=== PATIENT | male | born 1950 | race Caucasian/White ===

== ENCOUNTER 2023-11-10 08:41 | Outpatient (AMB) | payer BC, SELFPAY ==
--- NOTE | 2023-11-10 08:45 | A.OFFVIS_ITS ---
Intake Visit Reasons: Elevated PSA Intake Note: NEW Patient presents today to established treatment for Elevated PSA: Meds- Finasteride Allergies to Antibiotic- No Known Allergies Blood Thinner- None PVR, 21 mL Spectrographic Analyst Required: No Accompanied by: Self / Same As Patient Allergies tree and shrub pollen Allergy (Mild, Verified 11/10/23 08:51) Unknown HPI Comments Details: Jim is a 73-year-old male is here for evaluation due to elevated PSA. He states that he has seen Urology in the past. He was seen at [facility] urology and had a biopsy about 2-3 years ago that he states he is told prostate biopsy results were benign. He is transferred to [facility] Urology but was not satisfied with care as he has been referred by his primary to this office. He is also concerned about ED. He was prescribed Cialis in the past. He states that he was instructed to use the Cialis p.r.n.. He was brought in an MRI of the prostate performed 08/08/2021 results enlarged prostate 74 mL PI-RADS category 2-clinically significant cancer is unlikely to be present. Bladder scan PVR 21 mL PSA 03/27/2023- 5.2 Plan discussed finasteride 5 mg daily and Cialis 5 mg daily Review of Systems Const All systems reviewed & are unremarkable except as noted in HPI and below Reports no additional complaints Eyes Reports no additional complaints ENT Reports no additional complaints Card Reports no additional complaints Resp Reports no additional complaints GI Reports no additional complaints Reports as per HPI Musc Reports no additional complaints Skin/Breast Reports system reviewed and no additional complaints, except as documented Neuro Reports no additional complaints Psych Reports no additional complaints Endo Reports no additional complaints Howie/Lymph Reports no additional complaints Aller/Immun Reports no additional complaints Physical Exam Const General: healthy appearing, no acute distress and well developed Orientation/consciousness: patient oriented x3 HEENT Head: Yes normocephalic and Yes atraumatic Eyes Conjunctivae: conjunctivae normal Neck Neck: Yes normal visual inspection Chest Chest palpation & inspection: normal inspection of the chest Resp Effort & Inspection: normal respiratory effort Cardio Rate: regular rate GI Inspection: Yes normal to inspection Palpation (GI): Soft to palpation Skin General skin exam: no rashes or lesions noted Neuro General: patient oriented x3 Extrem General: No pedal edema Psych Appearance: grossly normal Affect: normal affect Office Procedures Post Void Residual Post Residual Void Post Void Residual (PVR): 21 08485-Asel Void Residual by ultrasound Results AMB Urinalysis, Automated UA Leukoctes 0 Joanna/uL Last Edit by BUFFY Ya on 11/10/23 09:02 UA Nitrite Negative Last Edit by BUFFY Ya on 11/10/23 09:02 UA Urobilinogen 0.2 mg/dL Last Edit by BUFFY Ya on 11/10/23 09:0 2 UA Protein 30 mg/dL Last Edit by BUFFY Ya on 11/10/23 09:02 1+ Joe Eevrett 11/10/23 09:02 UA pH 6.0 Last Edit by BUFFY Ya on 11/10/23 09:02 UA Blood 0 Shawn/uL Last Edit by BUFFY Ya on 11/10/23 09:02 UA Specific Louann 1.030 Last Edit by BUFFY Ya on 11/10/23 09: 02 UA Ketone Positive Last Edit by BUFFY Ya on 11/10/23 09:02 5 mg/dL Joe Everett 11/10/23 09:02 UA Bilirubin 0 mg/dL Last Edit by BUFFY Ya on 11/10/23 09:02 UA Glucose 0 mg/dL Last Edit by BUFFY Ya on 11/10/23 09:02 Quality Reporting (2019) Benign Prostatic Hyperplasia ([facility] 771) AUA symptom score: 14 Quality of life due to urinary symptoms: If you were to spend the rest of your life with your urinary condition the way it is now, how would you feel about that?: Mostly dissatisfied Results Reviewed Results Reviewed: Laboratory Last Values Urine pH (Auto) 6.0 04/22/24 08:52 Specific Louann (Auto) 1.030 11/10/23 08:52 Urine Protein (Auto) 30 mg/dL 11/10/23 08:52 Glucose (UA)(Auto) 0 mg/dL 11/10/23 08:52 Urine Ketones (Auto) Positive 11/10/23 08:52 Urine Blood (Auto) 0 Shawn/uL 11/10/23 08:52 Urine Nitrite (Auto) Negative 11/10/23 08:52 Urine Bilirubin (Auto) 0 mg/dL 11/10/23 08:52 Urine Urobilinogen (Auto) 0.2 mg/dL 11/10/23 08:52 Leukocyte Esterase (Auto) 0 Joanna/uL 11/10/23 08:52 Assessment & Plan Assessment & Plan (1) Elevated PSA: Code(s): R97.20 - Elevated prostate specific antigen [PSA] Category: Medical (2) BPH loc w urin obs/LUTS: Code(s): N40.1 - Benign prostatic hyperplasia with lower urinary tract symptoms Category: Medical Plan: Finasteride 5 mg daily. Will monitor PSA. Repeat in 4 months. Plan The patient had an opportunity to ask questions regarding treatment plan. The patient expressed understanding and agreement with the above treatment plan. The patient is aware they should contact our office by phone for worsening of their current condition or the appearance of new symptoms. Compliance is enco uraged with any medications and followup testing that is ordered. It is a privilege to be allowed the opportunity to participate in the urologic care of your patient. If you have any questions or concerns regarding treatment for the above conditions please do not hesitate to contact me. The office telephone contact is [phone]. This note is constructed in part using voice recognition software. While every effort has been made to ensure accuracy prototyper errors may have been included. Yours sincerely, Tyrel Price MD Orders: Orders AMB Post Void Residual by ultrasound 11/10/23 N39.8 - Other specified disorders of urinary system PSA,Total (Free>4and<10) 4 Months R97.20 - Elevated prostate specific antigen [PSA], N40.1 - Benign prostatic hyperplasia with lower urinary tract symptoms AMB Urinalysis Automated 11/10/23 Z13.9 - Encounter for screening, unspecified Medications: New finasteride (Proscar) 5 mg PO DAILY 90 tabs 3RF 90 days Coding Level of Care Code New Pt Level 3 (59489) Diagnoses Elevated PSA R97.20 BPH loc w urin obs/LUTS N40.1 CPT Codes Post Residual Void - PVR CPT Code: 44031-Rdtl Void Residual by ultrasound ([id number]) AUA Symptom Score AUA Incomplete emptying - It does not feel like I empty my bladder all the way.: 1 - Less than 1 time in 5 Frequency - I have to go again less than two hours after I finish urinating.: 5 - Almost always Intermittency - I stop and start again several times when I urinate.: 0 - Not at all Urgency - It is hard to wait when I have to urinate.: 5 - Almost always Weak stream - I have a weak urinary stream.: 1 - Less than 1 time in 5 Straining - I have to push or strain to begin urination.: 0 - Not at all Nocturia - I get up to urinate after I go to bed until the time I get up in the morning.: 2 times AUA Symptom Score: 14 Quality of life due to urinary symptoms: If you were to spend the rest of your life with your urinary condition the way it is now, how would you feel about that?: Mostly dissatisfied Source: Micah ECHAVARRIA, Junior RAMOS Jr, O'Sedalia MP, et al, and the Measurement Committee of the [employer]. The [employer] symptom index for benign prostatic hyperplasia. J Urol. 1992; 148: 1189-7840. Copyright 1992 [employer]
== END 2023-11-10 09:45 | disposition home or self-care (01) ==
PROVIDERS: PCP Internal Medicine; Visit Provider Urology
DX: R97.20 Elevated prostate specific antigen [PSA] (principal); N40.1 Benign prostatic hyperplasia with lower urinary tract symptoms
CPT/HCPCS: 99203

== ENCOUNTER → 2023-11-10 08:41 | Outpatient (BNVA) | payer BC, SELFPAY | PROVIDERS: PCP Internal Medicine; Visit Provider Urology | DX: R97.20 Elevated prostate specific antigen [PSA] (principal); N40.1 Benign prostatic hyperplasia with lower urinary tract symptoms; N13.8 Other obstructive and reflux uropathy | CPT/HCPCS: 51798; 81003 ==

== ENCOUNTER 2024-05-20 13:39 | Outpatient (AMB) | payer BC, SELFPAY ==
--- NOTE | 2024-05-20 12:52 | A.OFFVIS_ITS ---
Intake Visit Reasons: Follow up PSA(set) Intake Note: Patient is present for psa f/u Urology Medication:tadalafil,finasteride Antibiotic Allergy:none Blood Thinner:none Cushion Stuffer Required: No Allergies tree and shrub pollen Allergy (Mild, Verified 05/20/24 13:46) Unknown HPI Comments Details: 05/20/24--Jim is a 73-year-old male is here for FU due to elevated PSA. He was initially evaluated on 11/10/23 and started on proscar. I reviewed recent PSA. PSA-04/23/24--4.0 ng/mL. The patient was also prescribed Cialis for symptoms of ED. he states he has further concerns regarding his symptoms of ED. he has questions regarding alternative treatment options. I have reviewed the vacuum pump as well as discuss penile injection therapy. He is interested in further evaluation. He states that he has been trying to stay healthy, exercising. Discussed further evaluation can be done via penile Doppler testing. 30 minutes spent in review of records pertaining to this visit and including [id number] discussion with the patient and documentation of this visit. Review of chart: 11/10/23--Jim is a 73-year-old male is here for evaluation due to elevated PSA. He states that he has seen Urology in the past. He was seen at [facility] urology and had a biopsy about 2-3 years ago that he states he is told prostate biopsy results were benign. He is transferred to [facility] Urology but was not satisfied with care as he has been referred by his primary to this office. He is also concerned about ED. He was prescribed Cialis in the past. He states that he was instructed to use the Cialis p.r.n.. He was brought in an MRI of the prostate performed 08/08/2021 results enlarged prostate 74 mL PI-RADS category 2-clinically significant cancer is unlikely to be present. Bladder scan PVR 21 mL. PSA 03/27/2023- 5.2 Plan discussed finasteride 5 mg daily and Cialis 5 mg daily Review of Systems Const All systems reviewed & are unremarkable except as noted in HPI and below Reports no additional complaints Eyes Reports no additional complaints ENT Reports no additional complaints Card Reports no additional complaints Resp Reports no additional complaints GI Reports no additional complaints Reports as per HPI Musc Reports no additional complaints Skin/Breast Reports system reviewed and no additional complaints, except as documented Neuro Reports no additional complaints Psych Reports no additional complaints Endo Reports no additional complaints Howie/Lymph Reports no additional complaints Aller/Immun Reports no additional complaints Results AMB Urinalysis, Automated UA Leukoctes 70 Joanna/uL Last Edit by Arelis Ng [facility] on 05/20/24 13:58 UA Nitrite Negative Last Edit by Arelis Ng [facility] on 05/20/24 13:58 UA Urobilinogen 0.2 mg/dL Last Edit by Arelis Ng [facility] on 05/20/24 13:5 8 UA Protein 0 mg/dL Last Edit by Arelis Ng [facility] on 05/20/24 13:58 UA pH 6.0 Last Edit by Arelis Ng [facility] on 05/20/24 13:58 UA Blood 0 Shawn/uL Last Edit by Arelis Ng [facility] on 05/20/24 13:58 UA Specific Oriska 1.010 Last Edit by Arelis Ng [facility] on 05/20/24 13: 58 UA Ketone Negative Last Edit by Arelis Ng [facility] on 05/20/24 13:58 UA Bilirubin 0 mg/dL Last Edit by Arelis Ng [facility] on 05/20/24 13:58 UA Glucose 0 mg/dL Last Edit by Arelis Ng [facility] on 05/20/24 13:58 Results Reviewed Results Reviewed: Laboratory Last Values Urine pH (Auto) 6.0 05/20/24 13:57 Specific Oriska (Auto) 1.010 05/20/24 13:57 Urine Protein (Auto) 0 mg/dL 05/20/24 13:57 Glucose (UA)(Auto) 0 mg/dL 05/20/24 13:57 Urine Ketones (Auto) Negative 05/20/24 13:57 Urine Blood (Auto) 0 Shawn/uL 05/20/24 13:57 Urine Nitrite (Auto) Negative 05/20/24 13:57 Urine Bilirubin (Auto) 0 mg/dL 05/20/24 13:57 Urine Urobilinogen (Auto) 0.2 mg/dL 05/20/24 13:57 Leukocyte Esterase (Auto) 70 Joanna/uL 05/20/24 13:57 Assessment & Plan Assessment & Plan (1) Elevated PSA: Code(s): R97.20 - Elevated prostate specific antigen [PSA] Category: Medical (2) BPH loc w urin obs/LUTS: Code(s): N40.1 - Benign prostatic hyperplasia with lower urinary tract symptoms Category: Medical Plan: Finasteride 5 mg daily. Will monitor PSA. Repeat in 4 months. (3) Erectile dysfunction: Code(s): N52.9 - Male erectile dysfunction, unspecified Category: Medical Plan Continue Proscar. Continue to monitor PSA. Schedule penile Doppler with ultrasound and nurse practitioner. Orders: Orders AMB Urinalysis Automated 05/20/24 Z13.9 - Encounter for screening, unspecified PSA,Total (Free>4and<10) 6 Months R97.20 - Elevated prostate specific antigen [PSA] Medications: Refilled finasteride (Proscar) 5 mg PO DAILY 90 days 90 tabs 3RF Patient Instructions: The patient had an opportunity to ask questions regarding treatment plan. The patient expressed understanding and agreement with the above treatment plan. The patient is aware they should contact our office by phone for worsening of their current condition or the appearance of new symptoms. Compliance is encouraged with any medications and followup testing that is ordered. It is a privilege to be allowed the opportunity to participate in the urologic care of your patient. If you have any questions or concerns regarding treatment for the above conditions please do not hesitate to contact me. The office telephone contact is [phone]. This note is constructed in part using voice recognition software. While every effort has been made to ensure accuracy expert medical writer errors may have been included. Yours sincerely, Tyrel Price MD Coding Level of Care Code Est Pt Level 4 (98434) Diagnoses Elevated PSA R97.20 BPH loc w urin obs/LUTS N40.1 Erectile dysfunction N52.9
== END 2024-05-20 14:41 | disposition home or self-care (01) ==
LOC: HO.HUSH 13:39
PROVIDERS: PCP Internal Medicine; Visit Provider Urology
DX: R97.20 Elevated prostate specific antigen [PSA] (principal); N40.1 Benign prostatic hyperplasia with lower urinary tract symptoms; N52.9 Male erectile dysfunction, unspecified
CPT/HCPCS: 99214

== ENCOUNTER → 2024-05-20 13:39 | Outpatient (BNVA) | payer BC, SELFPAY | PROVIDERS: PCP Internal Medicine; Visit Provider Urology | DX: R97.20 Elevated prostate specific antigen [PSA] (principal); N40.1 Benign prostatic hyperplasia with lower urinary tract symptoms; N13.8 Other obstructive and reflux uropathy; N52.9 Male erectile dysfunction, unspecified; Z79.899 Other long term (current) drug therapy | CPT/HCPCS: 81003 ==

== ENCOUNTER 2024-10-05 09:44 | Outpatient (REF) | payer MEDICARE, BC, SELFPAY ==
--- NOTE | ~2024-10-05 | US_ITS ---
Examination: Penile ultrasound. CLINICAL INDICATION: Erectile dysfunction. TECHNIQUE: Generalized ultrasound imaging to the penile structure was performed. 2 mL of papaverine was injected on the right and left cavernosa and arterial velocities were obtained preinjection, and injection time and 5, 10, 15, 20 and 25 minute postinjection time. COMPARISON: None. On preliminary imaging of the penile structure that is slightly echogenic wall seen along evident nose artery. Postinjection values are as follows RIGHT CAVERNOSA: Preinjection: Peak systolic velocity 10.8. EDV 0. Injection time: Peak systolic velocity 19.8. EDV is 6.4 5 minutes: Peak systolic velocity 40.5. EDV 10.1 10 minutes: Peak systolic velocity 33.2. EDV 10.8 15 minutes: Peak systolic velocity 30.4. EDV 15.7 20 minutes: Peak systolic velocity 30.4. DAMARI 5.9. 25 minutes: Peak systolic velocity 19.5. EDV 4.0. Left cavernosa: Preinjection: Peak systolic velocity 9.0. EDV 0. Injection time: Peak systolic velocity 29.8. DAAMRI 8.9. 5 minutes: Peak systolic velocity 33.4. EDV 11.6. 10 minutes: Peak systolic velocity 14.9. EDV is 6.1 15 minutes: Peak systolic velocity 24.4. EDV 8.2. 20 minutes: Peak systolic velocity 16.5. EDV 5.4 25 minutes: Peak systolic velocity 25.7. EDV 5.2 US/US duplex AV flow penis comp IMPRESSION: There is normal peak systolic elevation in the right cavernosa with persistent elevation of and end diastolic velocity 5 minutes and 10 minutes post injection. 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 On the left there is normal peak systolic velocity at 5 minutes of 33.4 with decreased velocity. At 10 minutes there is slight decreased peak systolic velocity at 10 and 15 minutes, is variable. The end diastolic velocity is elevated at 5 minutes postinjection but below 10 cm/s at rest of the time. The findings are suspicious for arterial and minimal venoocclusive disorder. Electronically signed by: Shadi Goode MD 10/07/2024 01:49 PM EDT
--- NOTE | 2024-10-05 11:23 | W.PM.OPN ---
Operative Note Operative Note Date of Service: 10/05/24 Narrative: Date of Service:10/05/24 Narrative: Brief Operative Note Date of procedure: 10/05/24 Pre-op diagnosis: erectile dysfunction Post-op diagnosis: same Procedure: Penile injection performed in ultrasound department for evaluation of erectile dysfunction. Papaverine 60 mg per 2 mL: Injected 2mL/60mg using sterile technique at the 2 o'clock position of the base of the penis. Instructions provided should erection persist more than 30 minutes. Sterile technique used. Consent obtained. All questions were answered. Patient tolerated procedure well. CPT 83326 Anesthesia: none Surgeon: Mayela Degroot
== END 2024-10-05 09:45 | disposition home or self-care (01) ==
LOC: HO.US 09:44
PROVIDERS: PCP Internal Medicine; Visit Provider Nurse Practitioner Family
DX: N52.9 Male erectile dysfunction, unspecified (principal); I73.9 Peripheral vascular disease, unspecified
CPT/HCPCS: 93980; J2405

== ENCOUNTER → 2024-10-05 09:44 | Outpatient (BNV) | payer MEDICARE, BC, SELFPAY | PROVIDERS: PCP Internal Medicine; Visit Provider Nurse Practitioner Family | DX: N52.9 Male erectile dysfunction, unspecified (principal) | CPT/HCPCS: 54235 ==

== ENCOUNTER → 2024-10-05 09:46 | Outpatient (BNV) | payer MEDICARE, BC, SELFPAY | PROVIDERS: PCP Internal Medicine; Visit Provider Radiology Diagnostic Radiology | DX: N52.9 Male erectile dysfunction, unspecified (principal) | CPT/HCPCS: 93980 ==

== ENCOUNTER 2024-12-30 11:40 | Outpatient (AMB) | payer MEDICARE, BC, SELFPAY ==
--- NOTE | 2024-12-30 11:42 | MHC.OFFVIS ---
Intake Visit Reasons: follow up/PSA Intake Note: Patient is present for PSA F/U Urology Medication: Antibiotic Allergy: Blood Thinner: Allergies tree and shrub pollen Allergy (Mild, Verified 05/20/24 13:46) Unknown HPI Comments Details: Jim is a pleasant male. He is a patient of . He is seen for the following urologic conditions - lower urinary tract symptoms - erectile dysfunction Here for review Questions regarding treatment for his erectile dysfunction has completed Doppler examination Discussed use of vacuum pump for penile pushups - 5 minute daily protocol Displayed penile constriction band. Link provided to order See in 6 months with repeat PSA and prostate MRI PSA 6.6 13% free Erectile dysfunction Progressive Penile Doppler shows mild veno-occlusive disease Start with daily in on demand Cialis plus vacuum pump Laboratory - 01/12 T 501 - does take sertraline booster Lower urinary tract symptoms Prior poor response to finasteride Did discuss benefit from tadalafil plus-minus Flomax Would benefit from procedure and future Elevated PSA Prior biopsy Prostate MRI - 08/11 75 g prostate, PI-RADS 2 lesion Review of Systems Const Denies chills and Denies fever(s) Card Reports no additional complaints and Denies syncope Resp Denies cough GI Denies abdominal pain and Denies heartburn Reports as per HPI and Denies change in libido Neuro Denies syncope Psych Denies change in libido Endo Denies change in libido Physical Exam Const General: cooperative, healthy appearing, comfortable and no acute distress Orientation/consciousness: patient oriented x3 HEENT Face and sinus: Yes normal facial exam Mouth: moist mucous membranes Neck Neck: Yes normal visual inspection, Yes full ROM and Yes trachea midline Chest Chest palpation & inspection: normal inspection of the chest Resp Effort & Inspection: normal respiratory effort, able to speak in complete sentences and no respiratory distress GI Inspection: Yes normal to inspection Back/Spine/Pelvis Cervical Spine: normal cervical lordosis Thoracic/Lumbar Spine: thoracic and lumbar spine normal to inspection Skin General skin exam: no rashes or lesions noted Neuro General: patient oriented x3, gait normal, tone normal and moves all extremities Extrem General: Yes normal to inspection and Yes capillary refill normal Assessment & Plan Assessment & Plan (1) Elevated PSA: Code(s): R97.20 - Elevated prostate specific antigen [PSA] Category: Medical (2) Erectile dysfunction: Code(s): N52.9 - Male erectile dysfunction, unspecified Category: Medical (3) BPH loc w urin obs/LUTS: Code(s): N40.1 - Benign prostatic hyperplasia with lower urinary tract symptoms Category: Medical Plan Tadalafil plus on demand Six-month follow-up MRI prostate Medications: New tadalafil [id number] [facility] Member [id number] 5 mg PO DAILY 90 days 90 tabs 1RF sexual activity N52.01 - Erectile dysfunction due to arterial insufficiency tadalafil On demand medication take 60 minutes before intended activity [id number] [facility] Member [id number] 20 mg PO ONCE 30 days PRN 30 tabs 0RF sexual activity N52.9 - Male erectile dysfunction, unspecified Patient Instructions: This note is constructed using voice recognition software. While every effort has been made to ensure accuracy stator connector errors may have been included. Imaging studies, laboratory and physical exam results were discussed and reviewed in detail. No major barriers to patient understanding were identified. An opportunity to ask questions regarding the treatment plan was provided. All questions were answered. The patient expressed understanding and agreement with the above treatment plan. The patient is aware they should contact our office by phone for worsening of their current condition or the appearance of new urologic symptoms. Compliance is encouraged with any medications and followup testing that is ordered. It is a privilege to participate in the urologic care of your patient. If you have any questions or concerns regarding treatment for the above conditions, or other urologic issues, please do not hesitate to contact me. The office telephone contact is [phone]. Sincerely, Dr Vinay Cr MD, [facility] - Urology Compassionate Specialist Care for the Genitourinary System Coding Level of Care Code Est Pt Level 4 (16825) Complex EM visit Add On G2211 Diagnoses Elevated PSA R97.20 Erectile dysfunction N52.9 BPH loc w urin obs/LUTS N40.1
--- OUTSIDE RECORDS SUMMARY | 2024-12-30 13:48 | XMS_ITS | Encounter Summary ---
Author Organization [facility] Address [address] [place] [address] Care Team Providers Care Chauffeur [employer] Name Role Phone Erica Neumann MD Primary Care Provider [phone] Encounter Details Date Type Department Care Team (Late st Contact Info) Description 04/28/2024 9:38 AM EDT Hospital Encounter TH HISTORIC ENCOUNTERS [facility] ONLY Juan Carlos Cronin MD [address] [place] [phone] Social History Tobacco Use Types Packs/Day [...] a jacinto marginal zone lymphoma. Immunohistochemistries showed IT40-[id number], CD5-negative, SJ43-ovjfbvmt, RFB-3-sqffrohj, cyclin D1- negative, EHR07-qvxtyjjq. 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 He is single. He has no children. [...] Care Team (Late st Contact Info) Description 02/18/2025 9:45 AM EDT Office Visit Internal Medicine - [place] [address] [place] [address] Radha Nichols MD [address] [place] [id number] 05/09/2025 9:45 AM EDT Office Visit [facility] Hematology Oncology [address] [place] [address] Juan Carlos Cronin MD [address] [place] [address] documented as of this encounter Procedures Procedure Name Priority Date/Time Associated Diagnosis Comments ..MISCELLANEOUS REFERENCE LAB TEST 04/28/2024 documented in this encounter Results * Miscellaneous reference lab test (04/28/2024) us Provider Onbase LAB BLOOD ORDERABLES Final Re sult documented in this encounter Visit Diagnoses Not on filedocumented in this encounter Care Teams Chauffeur [employer] Relationship Specialty Start Date End Date Erica Neumann MD [facility] [place] [address] PCP - General 04/28/24 06/10/24 documented as of this encounter
== END 2024-12-30 12:46 | disposition home or self-care (01) ==
LOC: HO.HUSH 11:41
PROVIDERS: PCP Internal Medicine; Visit Provider Urology
DX: R97.20 Elevated prostate specific antigen [PSA] (principal); N52.9 Male erectile dysfunction, unspecified; N40.1 Benign prostatic hyperplasia with lower urinary tract symptoms
CPT/HCPCS: 99214; G2211

== ENCOUNTER → 2024-12-30 11:40 | Outpatient (BNVA) | payer MEDICARE, BC, SELFPAY | PROVIDERS: PCP Internal Medicine; Visit Provider Urology | DX: R97.20 Elevated prostate specific antigen [PSA] (principal); N40.1 Benign prostatic hyperplasia with lower urinary tract symptoms; N52.9 Male erectile dysfunction, unspecified | CPT/HCPCS: 99212 ==

== ENCOUNTER → 2025-05-18 08:25 | Outpatient (BNV) | payer MEDICARE, BC, SELFPAY | PROVIDERS: PCP Internal Medicine; Visit Provider Radiology Diagnostic Radiology | DX: N40.1 Benign prostatic hyperplasia with lower urinary tract symptoms (principal) | CPT/HCPCS: 72197 ==

== ENCOUNTER 2025-05-18 08:28 | Outpatient (REF) | payer MEDICARE, BC, SELFPAY ==
--- OUTSIDE RECORDS SUMMARY | 2024-04-28 09:38 | XMS_ITS | Encounter Summary ---
Author Organization [facility] Address [address] [place] [phone] Care Team Providers Care Control Equipment Electrician Name Role Phone Erica Neumann MD Primary Care Provider [phone] Encounter Details Date Type Department Care Team (Late st Contact Info) Description 04/28/2024 9:38 AM EDT Hospital Encounter TH HISTORIC ENCOUNTERS EASTERN CONVERSION ONLY Juan aCrlos Cronin MD [address] [place] [phone] Social History Tobacco Use Types Packs/Day [...] a jacinto marginal zone lymphoma. Immunohistochemistries showed PX76-hljwgeym, CD5-negative, IL94-erusxyvh, KTH-1-zjbtrinb, cyclin D1- negative, NZC82-xfsnkybt. 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 He has no children. [...] Care Team (Late st Contact Info) Description 06/17/2025 8:30 AM EST Office Visit Internal Medicine - [address] [place] [address] Radha Nichols MD [address] [place] [phone] 11/15/2025 10:00 AM EDT Office Visit [facility] Hematology Oncology [address] [place] [address] Juan Carlos Cronin MD [address] [place] [address] documented as of this encounter Procedures Procedure Name Priority Date/Time Associated Diagnosis Comments ..MISCELLANEOUS REFERENCE LAB TEST 04/28/2024 documented in this encounter Results * Miscellaneous reference lab test (04/28/2024) us Provider Onbase LAB BLOOD ORDERABLES Final Re sult documented in this encounter Visit Diagnoses Not on filedocumented in this encounter Care Teams Control Equipment Electrician Relationship Specialty Start Date End Date Erica Neumann MD [address] [place] [address] PCP - General 04/28/24 06/10/24 documented as of this encounter
--- NOTE | ~2025-05-18 | MR_ITS ---
EXAMINATION: MR PROSTATE WITHOUT THEN WITH IV CONTRAST HISTORY: N40.1 - Benign prostatic hyperplasia with lower urinary tract symptoms TECHNIQUE: 1.5T body coil survey of the pelvis was performed. Phase array coil imaging of the prostate was performed in multiplanar high resolution axial, coronal, sagittal fast spin echo T2 and axial T1 weighted imaging sequences. Axial diffusion imaging at intermediate and high field performed with ADC mapping. Next, 7 mL Gadavist was given by intravenous infusion, and dynamic axial imaging performed. 3-D reconstructions and post-processing were not performed as no discrete lesion was identified. COMPARISON: There are no prior studies available for comparison. CLINICAL DATA: Most recent PSA: 7.60 ng/mL on 12/20/2024. PSA Density: 0.88 ng/mL squared Prostate Biopsy: None reported. FINDINGS: Prostate size: 5.7 x 6.1 x 4.8 cm. Calculated prostate volume is 86.8 mL. Hemorrhage: None. Transitional Zone: There is marked heterogeneous nodular hypertrophy of the transitional zone. Peripheral Zone: The peripheral zone demonstrates diffusely decreased signal intensity on T2-weighted images which can be seen in the setting of prostatitis or scarring. No discrete lesion is identified. There are no foci of restricted diffusion. Seminal Vesicles/Ejaculatory Ducts: Symmetric and normal in signal and caliber. Pelvic Lymph Nodes: No obturator or internal iliac lymph nodes meeting size criteria for adenopathy. Marrow Signal: Normal marrow signal and enhancement without focal lesion identified. There is artifact from a left total hip arthroplasty. There is grade I spondylolisthesis of L5 on S1. Additional findings: Incidental note is made of moderate bilateral hydroceles. MR/MR Prostate wo/w con IMPRESSION: No discrete focus of abnormal signal intensity is identified to suggest clinically significant prostate carcinoma. PI-RADS 2: Low (clinically significant cancer is unlikely to be present) PI-RADS Assessment Categories PI-RADS 1: Very low (clinically significant cancer is highly unlikely to be present) PI-RADS 2: Low (clinically significant cancer is unlikely to be present) PI-RADS 3: Intermediate (the presence of clinically significant cancer is equivocal) PI-RADS 4: High (clinically significant cancer is likely to be present) PI-RADS 5: Very high (clinically significant cancer is highly likely to be present) [employer]. MR Prostate Imaging Reporting and Data System version 2.1. [email or web address]-[email or web address]/ Electronically signed by: Dainel Vera MD 05/18/2025 09:52 AM EDT
--- OUTSIDE RECORDS SUMMARY | 2025-05-18 08:59 | XMS_ITS ---
Author Name [facility] Organization Unknown Encounters Encounter Type Encounter Reason Primary Diagnosis Location Date Ambulatory [facility] 11/29/2023 Ambulatory [facility] 06/11/2023 Ambulatory [facility] 05/07/2023 Ambulatory [facility] 04/02/2023 Ambulatory [facility] 03/25/2023
--- OUTSIDE RECORDS SUMMARY | 2025-05-18 09:00 | XMS_ITS | Clinical Summary ---
Author Organization [facility] Address [address] [place] [id number] Care Team Providers Care Field Checker Name Role Phone Erica Neumann Primary Care Provider Allergies No known active allergies Medications Medication Sig Dispensed Refills Start Date End Date Status eszopiclone (LUNESTA) 2 MG TABS 0 07/10/2020 Activ e tadalafil (CIALIS) 20 MG tablet 0 05/05/2020 Active TURMERIC PO Take by mouth daily. 0 Active aspirin EC 81 MG EC tablet Take 1 tablet (81 mg total) by mouth 2 (two) times a day after meals. 80 tablet 0 08/16/2021 Active meloxicam (MOBIC) 15 MG tablet Take 1 tablet (15 mg total) by mouth daily. 30 tablet 0 08/16/2021 Active methocarbamol (ROBAXIN) 750 MG tablet Take 1 tablet (750 mg total) by mouth every 6 (six) hours as needed. 40 tablet 0 08/16/2021 Active traMADol (ULTRAM) 50 MG tablet Take 50 mg by mouth every 6 (six) hours as needed for mild pain (1-3). 30 tablet 0 08/16/2021 Active cephalexin (KEFLEX) 500 MG capsule TAKE 4 CAPSULES ONE HOUR PRIOR TO DENTAL VISITS 20 capsule 2 08/27/2021 Active Multiple Vitamins-Minerals (MULTIVITAMIN ADULTS PO) Take by mouth. 0 Active acetaminophen (TYLENOL) 325 MG tablet Take 2 tablets (650 mg total) by mouth every 6 (six) hours as needed for pain. 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/29/2021 Arthritis of left hip 07/25/2020 Immunizations Name Administration Dates Next Due Covid-19 (Pfizer) Dilution Required 04/26/2021,0 10/24/2020,10/02/2020 Family History Medical History Relation Name Comments No Sig Med Hx Brother No Sig Med Hx Father Kidney disease Mother No Sig Med Hx Sister Relation Name Status Comments Brother Alive Father (Age 86) Mother (Age 90) Sister Alive Social History Tobacco Use Types Packs/Day Years Used Date Smoking Tobacco: Never Smokeless Tobacco: Never Alcohol Use Standard Drinks/Week Comments Not Currently 0 (1 standard drink = 0.6 oz pur e alcohol) Sex and Gender Information Value Date Recorded Sex Assigned at Male 08/13/2021 10:25 AM EST Gender Identity Not on file Sexual Orientation Not on file Job Start Date Occupation Industry Not on file Not on file Not on file Last Filed Vital Signs Vital Sign Reading Time Taken Comments Blood Pressure 112/57 04/28/2024 9:43 AM EDT Pulse 64 04/28/2024 9:43 AM EDT Temperature 36.4 C (97.5 F) 04/28/2024 9:43 AM EDT Respiratory Rate 18 08/16/2021 9:15 AM EST Oxygen Saturation 98% 04/28/2024 9:43 AM EDT Inhaled Oxygen Concentration - - Weight 77.6 kg (171 lb) 04/28/2024 9:43 AM EDT Height 175.3 cm (5' 9 ) 04/28/2024 9:43 AM EDT Body Mass Index 25.25 04/28/2024 9:43 AM EDT Plan of Treatment Health Maintenance Due Date Last Done Comments Hepatitis C Screening 1950 Depression Screening 1962 Preventative Health Evaluation 1968 DTap / Tdap / Td (1 - Tdap) 1969 Colon Cancer Screening (Colonoscopy) 10/26/1995 Fall Risk Assessment 10/26/2015 Pneumococcal Vaccine (2 of 2 - PPSV23 or PCV20) 08/19/2017 06/24/2017 COVID-19 Vaccine (4 - 2024-2 6 season) 2025 04/26/2021, 10/24/2020, 10/02/2020 Influenza Vaccine (#1) 2025 06/24/2017 RSV Adult > 60+ Yrs or (1 - 1-dose 75+ series) 2025 Shingrix-Zoster Vaccine Completed 07/11/20, 11/07/2017 Hepatitis B Vaccines Aged Out No long er eligible based on patient's age to complete this topic RSV Ped < 20 months Aged Out No longe r eligible based on patient's age to complete this topic Medical Devices Implanted Type Area Rail Operations Controller Device Identifier Shelf Expiration Date Model / Serial / Lot Tritanium Cluster Hole Shell 60mm Stry-Howm [id number] - [id number] Implanted:Qty: 1 on 08/15/2021 by Roberto Pham MD at [facility] Left: Hip [employer] [id number] 04/19/2026 [id number] / / [id number] Hip Acetab X3 36mm G Stry-Howm [id number] - [id number] Implanted:Qty: 1 on 08/15/2021 by Roberto Pham MD at [facility] Left: Hip [employer] [id number] 08/25/2024 [id number] / / [id number] Lp Hex Screw 6.5x30mm Stry-Howm [id number] - [id number] Implanted:Qty: 1 on 08/15/2021 by Roberto Pham MD at [facility] Left: Hip [employer] [id number] 02/21/2026 [id number] / / [id number] Lp Hex Screw 6.5x20mm Stry-Howm [id number] - [id number] Implanted:Qty: 1 on 08/15/2021 by Roberto Pham MD at [facility] Left: Hip [employer] [id number] 02/19/2026 [id number] / / [id number] Hip Stem Acco Ii Sz8 127deg Stry-Howm [id number] 54 - [id number] Implanted:Qty: 1 on 08/15/2021 by Roberto Pham MD at [facility] Left: Hip [employer] [id number] 02/05/2026 [id number] / / [id number] Hip Head [employer] 36mm-2.5 Kvng [id number] - [id number] Implanted:Qty: 1 on 08/15/2021 by Roberto Pham MD at [facility] Left: Hip [employer] [id number] 05/02/2026 [id number] / / [id number] Advance Directives For more information, please contact: [phone] Latest Code Status on File Code Status Date Activated Date Inactivated Comments Full Code 08/15/2021 7:03 AM 08/16/2021 7:40 PM This code status was ascertained in the following way: discussion with patient . Code Status History Code Status Date Activated Date Inactivated Comments Full Code 08/15/2021 5:11 AM 08/15/2021 7:03 AM This code status was ascertained in the following way: discussion with patient . Care Teams Field Checker Relationship Specialty Start Date End Date Erica Neumann [address] [place] [address] [place] [address] PCP - General Internal Medicine 07/11/20
--- OUTSIDE RECORDS SUMMARY | 2025-05-18 09:00 | XMS_ITS | Clinical Summary ---
Author Organization [facility] Address [address] [place] [address] Phone Care Team Providers Care Junior Systems Engineer Name Role Phone Radha Nichols MD Primary Care Provider [phone] Allergies Active Allergy Reactions Criticality Noted Date Comments Calcium Carbonate GI intolerance 09/08/2024 Other 04/12/2016 Seasonal allergies Medications meloxicam (MOBIC) 15 mg tablet Take 1 tablet (15 mg total) by mouth 1 (one) time each day. 2 Active turmeric, bulk, 95 % powder Take by mouth 1 (one) time each day. Active tadalafiL (CIALIS) 20 mg tablet Take 1 tablet (20 mg total) by mouth 1 (one) time each day if needed. 0 Active multivitamin with minerals (MULTIPLE VITAMIN-MINERAL S ORAL) Take by mouth. Activ e acetaminophen (TYLENOL) 325 mg tablet Take 2 tablets (650 mg total) by mouth every 6 hours as needed. Active fluticasone propionate (FLONASE) 50 mcg/actuation nasal spray Administer 2 sprays into each nostril 1 (one) time each day. SHAKE LIQUID AND USE 2 SPRAYS IN EACH NOSTRIL DAILY 16 g 1 5 Active traZODone (DESYREL) 50 mg tablet Take 1 tablet (50 mg total) by mouth at bedtime. 90 tablet 1 5 Active adapalene (DIFFERIN) 0.3 % gelIndications: Acne, unspecified acne type Apply topically at bedtime. 45 g 5 5 06/10/20 25 Active loratadine (CLARITIN) 10 mg tablet Take 1 tablet (10 mg total) by mouth 1 (one) time each day. 90 tablet 3 5 Active calcium carbonate-vitam in D3 600 mg-10 mcg (400 unit) capsule Take 1 capsule by mouth 2 (two) times a day. 180 each 2 5 Active finasteride (Propecia) 1 mg tablet Take 1 tablet (1 mg total) by mouth 1 (one) time each day. Do not crush, chew, or split. 90 each 2 5 Active alendronate (FOSAMAX) 70 mg tablet TAKE 1 TABLET BY MOUTH EVERY 7 DAYS 12 tablet 1 5 Active alendronate (FOSAMAX) 70 mg tablet Take 1 tablet (70 mg total) by mouth every 7 (seven) days. 13 tablet 1 5 Active alendronate (FOSAMAX) 70 mg tablet Take 1 tablet (70 mg total) by mouth every 7 (seven) days. 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 ([facility] V24, [facility] V28) 08/06/2021 Prediabetes 08/06/2021 Assessment & Plan (02/03/2025 12:37 PM EDT): Orders: Hemoglobin A1c; Future Comprehensive metabolic panel; Future Lipid panel with reflex to direct LDL; Future Complete blood count; Future Thyroid stimulating hormone; Future Vitamin B12; Future Marginal zone lymphoma ([facility] V24, [facility] V28 ) 03/29/2021 Closed compression fracture of body of L1 vertebra ([facility] V24, [facility] V28) 08/13/2020 Arthritis of left hip 07/25/2020 Spondylolisthesis at L5-S1 level 11/29/2019 Diverticulosis 07/20/2019 Osteoarthritis 07/20/2019 Overview (06/14/2024): Hips Primary insomnia 08/25/2017 Assessment & Plan (02/03/2025 12:37 PM EDT): Orders: Hemoglobin A1c; Future Comprehensive metabolic panel; Future Lipid panel with reflex to direct LDL; Future Complete blood count; Future Thyroid stimulating hormone; Future Vitamin B12; Future Midline low back pain with sciatica 04/19/2016 Elevated PSA 12/19/2014 Overview (06/14/2024): Biopsy 10/02: Benign Attention deficit hyperactivity disorder (ADHD) 05/11/2007 Overview (06/14/2024): Marco Flores Colon polyps 03/17/2006 Overview (06/14/2024): Zeroogian; Tubulovillous Adenoma; 12/25; 08/15/11; R 5 yr, 11/04 Diverticulosis poor prep repeat 6 mo's; 05/08 Tubular adenoma, Hyperplastic polp, repeat 5 yrs Lactose intolerance 03/17/2006 Encounters Date Type Department Care Team Description 05/09/2025 9:45 AM EDT Office Visit [facility] Hematology Oncology [address] [place] [phone] Juan Carlos Cronin MD Marginal zone lymphoma ([facility]/HCC V24, CMS/HCC V28) (Primary Dx) 05/04/2025 Telephone [facility] Hematology Oncology [address] [place] [phone] Gregoria Fajardo MA 05/02/2025 8:12 AM EDT - 05/02/2025 11:59 PM EDT Hospital Encounter [facility] CT Scan [address] [place] [phone] Marginal zone lymphoma (CMS/HCC V24, CMS/HCC V28) Discharge Disposition: Home or Self Care 02/22/2025 Telephone [facility] Hematology Oncology [address] [place] [phone] Mona Welsh MA 02/16/2025 Telephone Internal Medicine [facility] [address] [phone] Radha Nichols MD from Last 3 Months Immunizations Immunization Administration Dates Next Due Influenza trivalent, 0.5mL (Fluad) 65yo and olde r 06/24/2017 Pfizer SARS-CoV-2 COVID-19, mRNA, LNP-S, preservative free 04/26/2021 Pneumococcal conjugate 13 va lent (Prevnar 13, PCV13) 2mo and older 06/24/2017 Td Tetanus diptheria (Tdvax) 7yo and older 01/12 Zoster recombinant (Shingrix) 19yo and older ,11/07/2017 Surgical History Surgery Date Site/Laterality Comments LIPOMA RESECTION 2010 PROCEDURE: SKIN TISSUE EXCISION(LIPOMA); COMMENT: Charles COLONOSCOPY 12/25. 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 DX:Intestinal disaccharidase deficiencies and disaccharide malabsorption Attention deficit hyperactiv ity disorder (ADHD) 05/11/2007 DX:Attention deficit hyperac tivity disorder (ADHD); COMMENT: Marco Flores Elevated PSA 12/19/2014 DX:Elevated PSA; COMMENT: Biopsy 10/02: Benign Midline low back pain with sciatica 04/19/2016 DX:Midline low back pain with sciatica Primary insomnia 08/25/2017 DX:Primary inso mnia Colon polyps 03/17/2006 DX:Colon polyps; COMMENT: Samir; Tubulovillous Adenoma; 12/25; 08/15/11; R 5 yr, 11/04 Diverticulosis poor prep repeat 6 mo's; 05/08 Tubular adenoma, Hyperplastic polp, repeat 5 yrs Diverticulosis 07/20/2019 DX:Diverticulosi s Osteoarthritis 07/20/2019 DX:Osteoarthriti s; COMMENT: Hips History of vertebral saranya jeff fracture 07/20/2019 DX:History of vertebral comp ression fracture; COMMENT: 2013: T7, T8 Closed compression fracture of body of L1 vertebra (CMS/HCC V24, CMS/HCC V28) 08/13/2020 DX:Closed compression fractu re of body of L1 vertebra (HCC) Marginal zone lymphoma (CMS/ HCC V24, CMS/HCC V28) DX:Marginal zone lymphoma (HCC);COMMENT:per MD note Urinary urgency DX:Urinary urgen cy Benign prostatic hyperplasia with urinary frequency DX:Benign prostatic hyperpla duong with urinary frequency Osteoarthritis DX:Osteoarthriti s BPH (benign prostatic hyperplasia) DX:BPH (benign prostatic hyperplasia) Pre-diabetes DX:Pre-diabetes Family History Medical History Relation Name Comments Stroke Brother 1 ? Heart attack Brother 2 No Known Problems Brother 3 Lung cancer Father ,ID and CAB G No Known Problems Father Diabetes Mother Kidney disease Mother No Known Problems Sister Relation Name Status Comments Brother 1 Brother 2 Brother 3 Alive Father (Age 86) Mother (Age 90) Sister Alive Social History Tobacco Use Types Packs/Day Years Used Date Smoking Tobacco: Never Cigarettes 2 5 - 07/21/1976 Smokeless Tobacco: Never Tobacco Cessation:Counseling Given: Not Answered Alcohol Use Standard Drinks/Week Comments Not Currently 0 (1 standard drink = 0.6 oz pur e alcohol) Sex and Gender Information Value Date Recorded Sex Assigned at Not on file Legal Sex Male 9:53 AM EST Gender Identity Not on file Sexual Orientation Not on file Obstetrics History Last Filed Vital Signs Vital Sign Reading Time Taken Comments Blood Pressure 92/55 05/09/2025 10:04 AM EDT Pulse 64 05/09/2025 10:04 AM EDT Temperature 36.6 C (97.9 F) 05/09/2025 10:04 AM EDT Respiratory Rate 18 02/03/2025 11:36 AM EDT Oxygen Saturation 96% 02/03/2025 11:36 AM EDT Inhaled Oxygen Concentration - - Weight 78.5 kg (173 lb) 05/09/2025 10:04 AM EDT Height 175.3 cm (5' 9 ) 02/03/2025 11:36 AM EDT Body Mass Index 25.55 02/03/2025 11:36 AM EDT Plan of Treatment Upcoming Encounters Date Type Department Care Team (Late st Contact Info) Description 06/17/2025 8:30 AM EST Office Visit Internal Medicine - [place] [address] [facility] [address] [place] [phone] Radha Nichols MD [address] [place] [phone] 11/15/2025 10:00 AM EDT Office Visit [facility] Hematology Oncology [address] [place] [phone] Juan Carlos Cronin MD [address] [place] [phone] Health Maintenance Due Date Last Done Comments Falls Risk Assessment 06/27/2022 Social Influencers of Health Screening 06/27/2022 Influenza Vaccine (#1) 2025 , 07/26/2023, 06/24/2017, Additional history exists Colorectal Cancer Screening: Stool Based Tests (FOBT/FIT) 04/13/2025 04/13/2024 Medicare Annual Wellness Visit 02/03/2026 02/03/2025 Cholesterol Screening (Lipid Panel) 02/03/2030 02/03/2025, 12/04/2023, 12/04/2023 DTaP,Tdap,and Td Vaccines (4 - Td or Tdap) 01/12/2031 01/12/2021, 10/13/2013, 12/18/2005 Hepatitis C Screening Completed 02/23/2013 Zoster Vaccines Completed 07/11/2019, 10/20, 04/17/2016, Additional history exists Abdominal Aortic Aneurysm (AAA) Screen Discontinued 11/23/2020 Pneumococcal Vaccine: 50+ Years Completed 04/15/2023, 06/24/2017 RSV Immunization Adult Patients Completed 07/26/2023 COVID-19 Vaccine Completed 11/03/2024, 03/2024, 04/15/2023, Additional history exists Depression Screening Completed 02/03/2025 HIB Vaccines Aged Out No longer eligi ble based on patient's age to complete this topic HPV Vaccines Aged Out No longer eligi ble based on patient's age to complete this topic Hepatitis A Vaccines Aged Out No long er eligible based on patient's age to complete this topic Hepatitis B Vaccines Aged Out No long er eligible based on patient's age to complete this topic IPV Vaccines Aged Out No longer eligi ble based on patient's age to complete this topic MMR Vaccines Aged Out No longer eligi ble based on patient's age to complete this topic Meningococcal ACWY Vaccine Aged Out N o longer eligible based on patient's age to complete this topic Meningococcal B Vaccine Aged Out No l onger eligible based on patient's age to complete this topic RSV Immunization Patients Under 20 months Aged Out No longer eligible based on patient's age to complete this topic Varicella Vaccines Aged Out No longer eligible based on patient's age to complete this topic Medical Devices Implanted Type Area Township Supervisor Device Identifier Shelf Expiration Date Model / Serial / Lot Tritanium Cluster Hole Shell 60mm Stry-Howm [id number] Implanted:Qty: 1 on 08/15/2021 by Thomas Pham MD Left: Hip [employer] [id number] 04/19/2026 702-04-60G / / [id number] Hip Acetab X3 36mm G Stry-Howm [id number] Implanted:Qty: 1 on 08/15/2021 by Thomas Pham MD Left: Hip [employer] [id number] 08/25/2024 643-00-36G / / [id number] Lp Hex Screw 6.5x30mm Stry-Howm [id number] Implanted:Qty: 1 on 08/15/2021 by Thomas Pham MD Left: Hip [employer] [id number] 02/21/2026 [id number] / / [id number] Lp Hex Screw 6.5x20mm Stry-Howm [id number] Implanted:Qty: 1 on 08/15/2021 by Thomas Pham MD Left: Hip [employer] [id number] 02/19/2026 0393-2953 / / [id number] Hip Stem Acco Ii Sz8 127deg Stry-Howm [id number] Implanted:Qty: 1 on 08/15/2021 by Thomas Pham MD Left: Hip [employer] [id number] 02/05/2026 [id number] / / [id number] Hip Head Delta Biolox 36mm-2.5 Stry-[facility] [id number] Implanted:Qty: 1 on 08/15/2021 by Thomas Pham MD Left: Hip [employer] [id number] 05/02/2026 [id number] / / [id number] Procedures Procedure Name Priority Date/Time Associated Diagnosis Comments CBC WITH AUTO DIFFERENTIAL Routine 05/04/2025 3:22 PM EDT Marginal zone lymphoma (CMS/HCC V24, CMS/HCC V28) LACTATE DEHYDROGENASE Routine 05/04/2025 3:22 PM EDT Marginal zone lymphoma (CMS/HCC V24, CMS/HCC V28) COMPREHENSIVE METABOLIC PANEL Routine 05/04/2025 3:22 PM EDT Marginal zone lymphoma (CMS/HCC V24, CMS/HCC V28) CBC AND DIFFERENTIAL Routine 05/04/2025 3:22 PM EDT Marginal zone lymphoma (CMS/HCC V24, CMS/HCC V28) CT CHEST/ABDOMEN/PELVIS W CONTRAST Routine 05/02/2025 8:53 AM EDT Marginal zone lymphoma (CMS/HCC V24, CMS/HCC V28) LIPID PANEL WITH REFLEX TO DIRECT LDL Routine 02/03/2025 12:21 PM EDT Vitamin D deficiency Adult general medical examination Other fatigue Erectile dysfunction, unspecified erectile dysfunction type Prediabetes Primary insomnia STOOL BASED TEST Routine 04/13/2024 ABDOMINAL AORTIC ANEURYSM SCRREN Routine 11/23/2020 HEPATITIS C SCREENING Routine 02/23/2013 from Last 3 Months or Most Recently Relevant to Health Maintenance Results * (ABNORMAL) CBC auto differential (05/04/2025 3:22 PM EDT) [facility] WBC 6.1 4.8 - 10.8 K/mcL LAB HEMETOLOGY METHOD 05/04/2025 4:49 PM EDT [facility] RBC 4.50 4.50 - 5.50 M/mcL LAB HEMETOLOGY METHOD 05/04/2025 4:49 PM EDT [facility] Hemoglobin 15.2 13.5 - 17.5 g/dL LAB HEMETOLOGY METHOD 05/04/2025 4:49 PM EDT [facility] Hematocrit 43.6 42.0 - 54.0 % LAB HEMETOLOGY METHOD 05/04/2025 4:[facility] MCV 97.3 79.0 - 98.0 FL LAB HEMETOLOGY METHOD 05/04/2025 4:49 [facility] MCH 33.9(H) 27.0 - 32.0 pcg LAB HEMETOLOGY METHOD 05/04/2025 4:49 [facility] MCHC 34.9 32.0 - 37.0 g/dL LAB HEMETOLOGY METHOD 05/04/2025 4:49 PM [facility] RDW 12.3 11.0 - 15.0 % LAB HEMETOLOGY METHOD 05/04/2025 4:49 PM EDT [facility] Platelets 265 130 - 400 K/mcL LAB HEMETOLOGY METHOD 05/04/2025 4:49 [facility] MPV 9.8 7.0 - 11.0 FL LAB HEMETOLOGY METHOD 05/04/2025 4:49 PM [facility] NRBC 0.0 <1.0 % LAB HEMETOLOGY METHOD 05/04/2025 4:49 PM EDT [facility] NRBC Absolute 0.00 <0.10 K/mcL LAB HEMETOLOGY METHOD 05/04/2025 4:49 PM EDT [facility] Neutrophils Relative 80.1 % LAB HEMETOLOGY METHOD 05/04/2025 4:49 PM [facility] Lymphocytes Relative 15.3 % LAB HEMETOLOGY METHOD 05/04/2025 4:49 [facility] Monocytes Relative 3.4 % LAB HEMETOLOGY METHOD 05/04/2025 4:49 PM [facility] Eosinophils Relative 0.2 % LAB HEMETOLOGY METHOD 05/04/2025 4:49 PM [facility] Basophils Relative 0.3 % LAB HEMETOLOGY METHOD 05/04/2025 4:49 PM [facility] Immature Granulocytes Relative 0.7 % LAB HEMETOLOGY METHOD 05/04/2025 4:49 PM [facility] Neutrophils Absolute 4.92 1.50 - 7.00 K/mcL LAB HEMETOLOGY METHOD 05/04/2025 4:49 PM [facility] Lymphocytes Absolute 0.94(L) 1.00 - 5.00 K/mcL LAB HEMETOLOGY METHOD 05/04/2025 4:49 PM [facility] Monocytes Absolute 0.21 0.20 - 1.00 K/mcL LAB HEMETOLOGY METHOD 05/04/2025 4:49 PM T [facility] Eosinophils Absolute 0.01 0.00 - 0.50 K/mcL LAB HEMETOLOGY METHOD 05/04/2025 4:49 PM [facility] Basophils Absolute 0.02 0.00 - 0.20 K/mcL LAB HEMETOLOGY METHOD 05/04/2025 4:49 PM [facility] Immature Granulocytes Absolute 0.04(H) 0.00 - 0.03 K/mcL LAB HEMETOLOGY METHOD 05/04/2025 4:49 PM EDT [facility] Blood Venous blood specimen / Unknown Venipuncture / Unknown 05/04/2025 3:22 PM EDT 05/04/2025 4:38 PM EDT us Juan Carlos Cronin MD LAB BLOOD ORDERABLES Final Result Performing Organization Address [facility]/ZIP Co de Phone Number [facility] [address] [place] [address], [place] [phone] * Lactate dehydrogenase (05/04/2025 3:22 PM EDT) Pathologist [facility] LDH 128 120 - 246 unit/L LAB CHEMISTRY METHOD 05/04/2025 4:57 PM EDT [facility] Blood Venous blood specimen / Unknown Venipuncture / Unknown 05/04/2025 3:22 PM EDT 05/04/2025 4:37 PM EDT us Juan Carlos Cronin MD LAB BLOOD ORDERABLES Final Result Performing Organization Address [facility] Co de Phone Number [facility] [address] [place] [address], [place] [phone] * Comprehensive metabolic panel (05/04/2025 3:22 PM EDT) Sodium 139 133 - 145 mmol/L LAB CHEMISTRY METHOD 05/04/2025 4:57 PM EDT [facility] Potassium 4.2 3.5 - 5.5 mmol/L LAB CHEMISTRY METHOD 05/04/2025 4:57 PM EDT [facility] Chloride 105 96 - 110 mmol/L LAB CHEMISTRY METHOD 05/04/2025 4:57 PM EDT [facility] CO2 30 21 - 32 mmol/L LAB CHEMISTRY METHOD 05/04/2025 4:57 PM EDT [facility] Anion Gap 4 3 - 11 LAB CHEMISTRY METHOD 05/04/2025 4:57 PM [facility] Glucose 95 70 - 100 mg/dL LAB CHEMISTRY METHOD 05/04/2025 4:57 PM [facility] BUN 24 5 - 25 mg/dL LAB CHEMISTRY METHOD 05/04/2025 4:57 PM [facility] Creatinine 1.01 0.70 - 1.30 mg/dL LAB CHEMISTRY METHOD 05/04/2025 4:57 PM [facility] eGFR 78 >=60 mL/min/1. 73m2 LAB CHEMISTRY METHOD 05/04/2025 4:57 PM [facility] Comment:Calculation based on the Chronic Kidney Disease Epidemiology Collaboration (CKD-EPI) equation refit without adjustment for race. BUN/Creatinine Ratio 23.8 LAB CHEMISTRY METHOD 05/04/2025 4:57 PM [facility] Calcium 9.2 8.5 - 10.5 mg/dL LAB CHEMISTRY METHOD 05/04/2025 4:57 PM [facility] AST (SGOT) 15 10 - 42 unit/L LAB CHEMISTRY METHOD 05/04/2025 4:57 PM [facility] ALT (SGPT) 32 10 - 60 unit/L LAB CHEMISTRY METHOD 05/04/2025 4:57 PM [facility] Alkaline Phosphatase 61 42 - 121 unit/L LAB CHEMISTRY METHOD 05/04/2025 4:57 PM [facility] Total Protein 7.1 6.0 - 8.0 g/dL LAB CHEMISTRY METHOD 05/04/2025 4:57 PM [facility] Albumin 4.0 3.2 - 5.0 g/dL LAB CHEMISTRY METHOD 05/04/2025 4:57 PM [facility] Total Bilirubin 0.6 0.0 - 1.4 mg/dL LAB CHEMISTRY METHOD 05/04/2025 4:57 PM [facility] Blood Venous blood specimen / Unknown Venipuncture / Unknown 05/04/2025 3:22 PM EDT 05/04/2025 4:37 PM EDT Juan Carlos Cronin MD LAB BLOOD ORDERABLES Final Result [facility] [address] [place] [address], * CT Chest/Abdomen/Pelvis w Contrast (05/02/2025 8:53 AM EDT) Anatomical Region Laterality Modality Body Computed Tomogra phy 05/04/2025 3:46 PM EDT Impressions 05/05/2025 12:20 AM EDT 1. No evidence of lymphadenopathy in the chest, abdomen or pelvis. 2. Prostatomegaly. 3. Diverticulosis without evidence for acute diverticulitis. -------- FINAL REPORT -------- Dictated By: Aide Bills Dictated Date: 05/04/2025 15:46 ET Assigned Physician: Aide Bills Reviewed and Electronically Signed By: Aide Bills Signed Date: 05/05/2025 00:20 ET Workstation ID: [id number] Transcribed By: Self Edit Transcribed Date: 05/04/2025 15:46 ET Narrative 05/05/2025 12:[address] CHEST, ABDOMEN AND PELVIS WITH CONTRAST INDICATION: Staging lymphoma TECHNIQUE: Chest, abdomen and pelvis CT following the intravenous administration of 90cc ISOVUE 370. Multiplanar reformats were created and interpreted. The examination was performed utilizing dose reduction techniques. Total DLP: 1419 mGy/cm COMPARISON: No priors available. FINDINGS: LUNGS/PLEURA: Central airways are patent. Lungs are clear. No pleural effusion or pneumothorax. MEDIASTINUM: Thyroid gland is unremarkable. No mediastinal or hilar lymphadenopathy. Cardiac chambers are normal in size. No pericardial effusion. Esophagus is normal. Varicosity anterior to the left sternocleidomastoid. CHEST WALL: No axillary lymphadenopathy or mass. HEPATOBILIARY: Probable hemangioma in segment 4. Other low-density lesions too small to characterize but presumably benign. No cholelithiasis or biliary duct dilatation. SPLEEN: no focal lesion PANCREAS: No focal mass or ductal dilatation. ADRENALS: No nodules. KIDNEYS/URETERS: No hydronephrosis, stones, or solid mass. PELVIC ORGANS/BLADDER: Prostatomegaly. Stable bilateral pelvic sidewall nodes. PERITONEUM / RETROPERITONEUM: No ascites or free air. No retroperitoneal lymphadenopathy. VESSELS: Scattered atherosclerotic calcifications throughout the aorta and its major branches. No aneurysm. GI TRACT: Diverticulosis without evidence for acute diverticulitis. BONES AND SOFT TISSUES: Degenerative changes of the spine with bilateral pars defects at L5 with anterolisthesis of L5 and S1. Stable chronic compression deformities of the thoracic and lumbar spine. Multilevel spinal stenosis and neural foraminal narrowing. Left hip arthroplasty. Significant joint space narrowing of the right hip. No acute fracture is evident. Postsurgical changes right groin. Small fat-containing right inguinal hernia. Procedure Note Aide Bills MD - 05/05/2025 CT CHEST, ABDOMEN AND PELVIS WITH CONTRAST INDICATION: Staging lymphoma TECHNIQUE: Chest, abdomen and pelvis CT following the intravenousadministration of 90cc ISOVUE 370. Multiplanar reformats were created andinterpreted. The examination was performed utilizing dose reductiontechniques. Total DLP: 1419 mGy/cm COMPARISON: No priors available. FINDINGS: LUNGS/PLEURA: Central airways are patent. Lungs are clear. No pleuraleffusion or pneumothorax. MEDIASTINUM: Thyroid gland is unremarkable. No mediastinal or hilarlymphadenopathy. Cardiac chambers are normal in size. No pericardialeffusion. Esophagus is normal. Varicosity anterior to the leftsternocleidomastoid. CHEST WALL: No axillary lymphadenopathy or mass. HEPATOBILIARY: Probable hemangioma in segment 4. Other low-densitylesions too small to characterize but presumably benign. No cholelithiasisor biliary duct dilatation. SPLEEN: no focal lesion PANCREAS: No focal mass or ductal dilatation. ADRENALS: No nodules. KIDNEYS/URETERS: No hydronephrosis, stones, or solid mass. PELVIC ORGANS/BLADDER: Prostatomegaly. Stable bilateral pelvic sidewallnodes. PERITONEUM / RETROPERITONEUM: No ascites or free air. No retroperitoneallymphadenopathy. VESSELS: Scattered atherosclerotic calcifications throughout the aorta andits major branches. No aneurysm. GI TRACT: Diverticulosis without evidence for acute diverticulitis. BONES AND SOFT TISSUES: Degenerative changes of the spine with bilateralpars defects at L5 with anterolisthesis of L5 and S1. Stable chroniccompression deformities of the thoracic and lumbar spine. Multilevelspinal stenosis and neural foraminal narrowing. Left hip arthroplasty.Significant joint space narrowing of the right hip. No acute fracture isevident. Postsurgical changes right groin. Small fat-containing rightinguinal hernia. IMPRESSION: 1. No evidence of lymphadenopathy in the chest, abdomen or pelvis. 2. Prostatomegaly. 3. Diverticulosis without evidence for acute diverticulitis. -------- FINAL REPORT -------- Dictated By: Aide Bills Dictated Date: 05/04/2025 15:46 ET Assigned Physician: Aide Bills Reviewed and Electronically Signed By: Aide Bills Signed Date: 05/05/2025 00:20 ET Workstation ID: [id number] Transcribed By: Self Edit Transcribed Date: 05/04/2025 15:46 ET us Juan Carlos Cronin MD IMG CT PROCEDURES Final Res ult * Lipid panel with reflex to direct LDL (02/03/2025 12:21 PM EDT) Cholesterol 158 0 - 200 mg/dL LAB CHEMISTRY METHOD 02/03/2025 4:02 PM [facility] Triglycerides 68 0 - 150 mg/dL LAB CHEMISTRY METHOD 02/03/2025 4:02 PM [facility] HDL 56 >=40 mg/dL LAB CHEMISTRY METHOD 02/03/2025 4:02 PM [facility] LDL Calculated 88 0 - 100 mg/dL LAB CHEMISTRY METHOD 02/03/2025 4:02 PM [facility] VLDL Cholesterol Krunal 13.6 mg/dL LAB CHEMISTRY METHOD 02/03/2025 4:02 PM [facility] Non HDL Chol. (LDL+VLDL) 102 <145 mg/dL LAB CHEMISTRY METHOD 02/03[facility]2025 4:[facility] Chol/HDL Ratio 2.8 0.0 - 4.4 LAB CHEMISTRY METHOD 02/03/2025 4:02 PM EDT [facility] Blood Venous blood specimen / Unknown Venipuncture / Unknown 02/03/2025 12:21 PM EDT 02/03/2025 12:21 PM EDT Radha Nichols MD LAB BLOOD ORDERABLES Final Res ult [facility] [address] [place] [address], [place] [phone] * Stool Based Tests (FOBT/FIT) (04/13/2024) [facility] Colorectal Cancer Screening: Stool Based Tests abstracted, no interpretation Historical Provider HEALTH MAINTENANCE Final Result * Abdominal Aortic Aneurysm Screen (11/23/2020) [facility] Abdominal Aortic Aneurysm (AAA) Screening abstracted, no interpretation Anatomical Region Laterality Modality Other Historical Provider HEALTH MAINTENANCE Final Result * Hepatitis C Screening (02/23/2013) [facility] Hepatitis C Screening abstracted Historical Provider HEALTH MAINTENANCE Final Result from Last 3 Months or Most Recently Relevant to Health Maintenance Insurance [facility] MEDICARE Care Teams Junior Systems Engineer Relationship Specialty Start Date End Date Radha Nichols MD [address] [address] PCP - General Internal Medicine 06/11/24
== END 2025-05-18 08:29 | disposition home or self-care (01) ==
LOC: HO.MRI 08:28
PROVIDERS: PCP Internal Medicine; Visit Provider Urology
DX: R97.20 Elevated prostate specific antigen [PSA] (principal); N40.1 Benign prostatic hyperplasia with lower urinary tract symptoms
CPT/HCPCS: 72197; 76377; A9585

== ENCOUNTER 2025-07-05 10:33 | Outpatient (AMB) | payer MEDICARE, BC, SELFPAY ==
--- OUTSIDE RECORDS SUMMARY | 2024-04-28 08:38 | XMS_ITS | Encounter Summary ---
Author Organization [facility] Address [address] [place] [id number] Care Team Providers Care Cloth Calender Name Role Phone Erica Neumann MD Primary Care Provider [phone] Encounter Details Date Type Department Care Team (Late st Contact Info) Description 04/28/2024 9:38 AM EDT Hospital Encounter TH HISTORIC ENCOUNTERS EASTERN CONVERSION ONLY Juan Carlos Cronin MD [address] [place] [phone] Social History Tobacco Use Types Packs/Day Years Used Date Smoking Tobacco: Never Cigarettes 2 5 - 07/21/1976 Smokeless Tobacco: Never Alcohol Use Standard Drinks/Week Comments Not Currently 0 (1 standard drink = 0.6 oz pur e alcohol) Sex and Gender Information Value Date Recorded Sex Assigned at Not on file Legal Sex Male 9:53 AM EST Gender Identity Not on file Sexual Orientation Not on file documented as of this encounter Last Filed Vital Signs Vital Sign Reading Time Taken Comments Blood Pressure 112/57 04/28/2024 9:43 AM EDT Pulse 64 04/28/2024 9:43 AM EDT Temperature - - Respiratory Rate - - Oxygen Saturation - - Inhaled Oxygen Concentration - - Weight 77.6 kg (171 lb) 04/28/2024 9:43 AM EDT Height 175.3 cm (5' 9 ) 04/28/2024 9:43 AM EDT Body Mass Index 25.25 04/28/2024 9:43 AM EDT documented in this encounter Progress Notes * Juan Carlos Cronin MD - 04/28/2024 9:30 AM EDT Diagnosis/treatment: Jacinto marginal zone lymphoma, diagnosed in 01/2021. Interval history: The patient is a 73-year-old gentleman who first noticed a waxing and waning right groin lump in 10/2020. An A/P CT without contrast on 11/23/2020 showed a 2.6 cm and a 1.6 cm right inguinal nodes and was otherwise unremarkable. He underwent an excisional biopsy of a right inguinal node on 01/23/[address]21 [address]Dr. Soto and the pathology showed a jacinto marginal zone lymphoma. Immunohistochemistries showed OU59-bourguzn, CD5-negative, LB51-corkpxma, AMJ-0-vmsfawkd, cyclin D1- negative, CRZ62-uyfbpzze. 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 A CBC on 03/28/2021 showed a WBC of 5.2 with ANC 3.3 and ALC 1.6, hemoglobin 13.6 with MCV 101, and platelet count 245,000. An LDH was 127. A hepatitis B panel and hepatitis C antibody were negative. A chest CT with IV contrast on 04/20/2021 showed no lymphadenopathy. A PET/CT on 04/24/2021 showed uptake in small bilateral iliac nodes, with a left iliac node with SUV4.0. There was focal uptake in the left aspect of the prostate gland with SUV 3.9. He is being followed by urologist for an elevated PSA. A pelvic MRI with contrast on 10/03/2021 showed no evidence of prostate cancer. A C/A/P CT with IV and oral contrast on 10/03/2021 showed no lymphadenopathy. A CBC on 09/02/2022 showed WBC 6.2 with ANC 4.6 and ALC 1.3, hemoglobin 15.2 with MCV 99, and platelet count 324,000. A creatinine was 0.9. An LDH was 120. A CBC on 03/09/2023 showed WBC 5.3 with ANC 3.4 and ALC 1.7, hemoglobin 14.5 with MCV 97, and platelet count 236,000. A creatinine was 0.9. An LDH was 100. A C/A/P CT with IV and oral contrast 10/21/2023 showed no lymphadenopathy. A CBC on 04/22/2024 showed WBC 5.4 with ANC 3.6 and ALC 1.5, hemoglobin 14.9 with MCV 100, and platelet count 283,000. A creatinine was 1.0. An LDH was 107. He denies B symptoms. He denies headaches or visual changes. He denies cough, hemoptysis, dyspnea on exertion. He denies nausea or abdominal pain. He denies unusual bone pain. He reports an intact appetite. Past medical history: Osteoarthritis, chronic L1 compression fracture, chronic low back pain, ADHD. Current medications: Lunesta, Adderall, Flonase, Advil, Cialis. Allergies: No known drug allergies. Family history: His father was diagnosed with lung cancer and at age 78 from that cancer. His mother had no history of cancer. His 3 brothers and 1 sister have no history of cancer. 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 He is single. He has no children. He drinks alcoholrarely. He quit smoking tobacco at age 26. Review of systems: The remainder of a 10 point review of systems was unremarkable. Physical examination: HEENT: Sclerae anicteric, normal oropharyngeal membrane. Neck: No lymphadenopathy. Lungs: Clear to auscultation. Heart: No murmurs. Abdomen: Soft, nontender, no organomegaly or masses. Extremities: Prominent axillary fat pads bilaterally, no axillary, inguinal, or femoral lymphadenopathy. No edema. Skin: No rash. Neurologic: Normal gait. Assessment/plan: The patient is a 72-year-old gentleman who presented in 01/2021 with a stage IIA jacinto marginal zonelymphoma. He has not received any therapeutic interventions apart from an initial excisional biopsyof a right groin node. He has no discernible peripheral lymphadenopathy. CTs of show no lymphadenopathy. We will observe the patient. We will follow CTs every 12-18 months. . documented in this encounter Plan of Treatment Upcoming Encounters Date Type Department Care Team (Late st Contact Info) Description 11/15/2025 10:00 AM EDT Office Visit [facility] Hematology Oncology [address] [place] [phone] Juan Carlos Cronin MD [address] [place] [phone] 12/20/2025 11:00 AM EDT Office Visit Internal Medicine - [place] [address] [place] [address] Radha Nichols MD [address] [place] [phone] documented as of this encounter Procedures Procedure Name Priority Date/Time Associated Diagnosis Comments ..MISCELLANEOUS REFERENCE LAB TEST 04/28/2024 documented in this encounter Results * Miscellaneous reference lab test (04/28/2024) us Provider Onbase LAB BLOOD ORDERABLES Final Re sult documented in this encounter Visit Diagnoses Not on filedocumented in this encounter Care Teams Cloth Calender Relationship Specialty Start Date End Date Erica Neumann MD [address] [place] [address] PCP - General 04/28/24 06/10/24 documented as of this encounter
--- NOTE | 2025-07-05 10:42 | A.OFFVIS_ITS ---
Intake Visit Reasons: 6m/PSA/MRI/SET UA Intake Note: Patient is present for 6 mo follow up Urology Medication:Finasteride , Tadalafil Antibiotic Allergy:none Blood Thinner:none Imaging: Prostate MRI 05/18/25 Labs done : 06/10/25 PSA 8.02 PVR:60mls Hims Clerk Required: No Accompanied by: Self / Same As Patient Allergies tree and shrub pollen Allergy (Mild, Verified 07/05/25 10:43) Unknown HPI Comments Details: Jim is a pleasant male. He is a patient of . He is seen for the following urologic conditions - lower urinary tract symptoms - erectile dysfunction Prostate MRI 85 g prostate, no lesions seen - discussed negative predictive value of MRI PSA 01/12 7.6, 06/14 8.0 His PSA has stayed in this range for a while Did use penile constriction band We discussed use of a vacuum pump and showed him how to use pump in the office He is very interested in information provided Six-month follow-up PSA Erectile dysfunction Progressive Penile Doppler shows mild veno-occlusive disease Start with daily in on demand Cialis plus vacuum pump Laboratory - 01/12 T 501 - does take sertraline booster Lower urinary tract symptoms Prior poor response to finasteride Did discuss benefit from tadalafil plus-minus Flomax Would benefit from procedure and future Elevated PSA Prior biopsy Prostate MRI - 08/11 75 g prostate, PI-RADS 2 lesion - 05/14 85gm No discrete focus of abnormal signal intensity is identified to suggest clinically significant prostate carcinoma Review of Systems Const Denies chills and Denies fever(s) Card Reports no additional complaints and Denies syncope Resp Denies cough GI Denies abdominal pain and Denies heartburn Reports as per HPI and Denies change in libido Neuro Denies syncope Psych Denies change in libido Endo Denies change in libido Physical Exam Const General: cooperative, healthy appearing, comfortable and no acute distress Orientation/consciousness: patient oriented x3 HEENT Face and sinus: Yes normal facial exam Mouth: moist mucous membranes Neck Neck: Yes normal visual inspection, Yes full ROM and Yes trachea midline Chest Chest palpation & inspection: normal inspection of the chest Resp Effort & Inspection: normal respiratory effort, able to speak in complete sentences and no respiratory distress GI Inspection: Yes normal to inspection Back/Spine/Pelvis Cervical Spine: normal cervical lordosis Thoracic/Lumbar Spine: thoracic and lumbar spine normal to inspection Skin General skin exam: no rashes or lesions noted Neuro General: patient oriented x3, gait normal, tone normal and moves all extremities Extrem General: Yes normal to inspection and Yes capillary refill normal Office Procedures Post Void Residual Post Residual Void Post Void Residual (PVR): 60 [id number]-[id number] Void Residual by ultrasound Assessment & Plan Assessment & Plan (1) Erectile dysfunction: Code(s): N52.9 - Male erectile dysfunction, unspecified Category: Medical (2) Elevated PSA: Code(s): R97.20 - Elevated prostate specific antigen [PSA] Category: Medical Plan Six-month follow-up check PSA Orders: Orders PSA,Total (Free>4and<10) 6 Months R97.20 - Elevated prostate specific antigen [PSA] Patient Instructions: This note is constructed using voice recognition software. 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 Imaging studies, laboratory and physical exam results were discussed and reviewed in detail. No major barriers to patient understanding were identified. An opportunity to ask questions regarding the treatment plan was provided. All questions were answered. The patient expressed understanding and agreement with the above treatment plan. The patient is aware they should contact our office by phone for worsening of their current condition or the appearance of new urologic symptoms. Compliance is encouraged with any medications and followup testing that is ordered. It is a privilege to participate in the urologic care of your patient. If you have any questions or concerns regarding treatment for the above conditions, or other urologic issues, please do not hesitate to contact me. The office te erik contact is [phone]. Sincerely, Dr Vinay Cr MD, [facility] - Urology Compassionate Specialist Care for the Genitourinary System Coding Level of Care Code Est Pt Level 3 (15646) Add On Problem Visit Only Diagnoses Erectile dysfunction N52.9 Elevated PSA R97.20 CPT Codes Post Residual Void - PVR CPT Code: 55242-Ypls Void Residual by ultrasound ([id number])
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
--- OUTSIDE RECORDS SUMMARY | 2025-07-05 13:21 | XMS_ITS | Clinical Summary ---
Author Organization [facility] Address [address] [place] [address] Phone Care Team Providers Care Chief Writer Name Role Phone Radha Nichols MD Primary Care Provider [phone] Allergies Active Allergy Reactions Criticality Noted Date Comments Calcium Carbonate GI intolerance 09/08/2024 Other 04/12/2016 Seasonal allergies Medications turmeric, bulk, 95 % powder Take by [...] at bedtime. 90 tablet 1 5 Active loratadine (CLARITIN) 10 mg tablet Take [...] 7 DAYS 12 tablet 1 5 Active meloxicam (MOBIC) 15 mg tablet Take 1 tablet (15 mg total) by mouth 1 (one) time each day. 2 Discontinu ed( ) adapalene (DIFFERIN) 0.3 % gelIndications: Acne, unspecified acne type Apply topically at bedtime. 45 g 5 5 025 Discontinu ed( ) alendronate (FOSAMAX) 70 mg tablet Take 1 tablet (70 mg total) by mouth every 7 (seven) days. 13 tablet 1 5 025 Discontinu ed(Non-com pliance) azithromycin (ZITHROMAX) 250 mg tablet Take 2 tablets (500 mg total) by mouth 1 (one) time each day for 1 day, THEN 1 tablet (250 mg total) 1 (one) time each day for 4 days. 6 each 5 025 predniSONE (DELTASONE) 20 mg tablet Take 2 tablets (40 mg total) by mouth 1 (one) time each day for 5 days. 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 Prediabetes 08/06/2021 Assessment & Plan (02/03/2025 12:37 PM EDT): Orders: Hemoglobin A1c; Future Comprehensive metabolic panel; Future Lipid panel with reflex to direct LDL; Future Complete blood count; Future Thyroid stimulating hormone; Future Vitamin B12; Future Marginal zone lymphoma 03/29/2021 Closed compression fracture of body of L1 verteb ra 08/13/2020 Arthritis of left hip 07/25/2020 Spondylolisthesis [...] Encounters Date Type Department Care Team Description 06/17/2025 8:30 AM EST Office Visit Internal Medicine - [place] [address] [place] [phone] Radha Nichols MD Bronchitis (Primary Dx); Marginal zone lymphoma (CMS/HCC V24, CMS/HCC V28); Elevated PSA; Erectile dysfunction, unspecified erectile dysfunction type 06/10/2025 3:20 PM EST Lab Draw Station - [address] [place] [address] Elevated prostate specific antigen (PSA) 05/09/2025 9:45 AM EDT Office Visit [facility] Hematology Oncology [address] [place] [phone] Juan Carlos Cronin MD Marginal zone lymphoma (CMS/HCC V24, CMS/HCC V28) (Primary Dx) 05/04/2025 Telephone [facility] Hematology Oncology [address] [place] [address] Gregoria Fajardo MA 05/02/2025 8:12 AM EDT - 05/02/2025 11:59 PM EDT Hospital Encounter [facility] CT Scan [address] [place] [address] Marginal zone lymphoma ([facility] V24, [facility] V28) Discharge Disposition: Home or Self Care from Last 3 Months Immunizations Immunization Administration [...] COLONOSCOPY 12/25. 08/01 PROCEDURE: HISTORICAL COLONOSCOPY; COMMENT: Alaina Oliveira 5 y COLONOSCOPY 11/04/2016 PROCEDURE: HISTORICAL COLONOSCOPY; [...] mnia Colon polyps 03/17/2006 DX:Colon polyps; COMMENT: Zeroogian; Tubulovillous Adenoma; 12/25; 08/15/11; R 5 [...] Known Problems Brother 3 Lung cancer Father ,[place] and CAB G No Known Problems Father [...] on file Sexual Orientation Not on file Last Filed Vital Signs Vital Sign Reading Time Taken Comments Blood Pressure 131/69 06/17/2025 8:27 AM EST Pulse 63 06/17/2025 8:27 AM EST Temperature 36.4 C (97.5 F) 06/17/2025 8:27 AM EST Respiratory Rate 18 06/17/2025 8:27 AM EST Oxygen Saturation 97% 06/17/2025 8:27 AM EST Inhaled Oxygen Concentration - - Weight 81.2 kg (179 lb) 06/17/2025 8:27 AM EST Height 175.3 cm (5' 9 ) 06/17/2025 8:27 AM EST Body Mass Index 26.43 06/17/2025 8:27 AM EST Plan of Treatment Upcoming Encounters Date Type Department Care Team (Late st Contact Info) Description 11/15/2025 10:00 AM EDT Office Visit [facility] Hematology Oncology [address] [place] [address] Juan Carlos Cronin MD [address] [place] [address] 12/20/2025 11:00 AM EDT Office Visit Internal Medicine - [place] [address] [place] [address] Radha Nichols MD [address] [place] [phone] Health Maintenance Due Date Last Done Comments Falls Risk Assessment 06/27/2022 Social Influencers of Health Screening 06/27/2022 COVID-19 Vaccine ( season) 2025 11/03/2024, 04/28/2024, 04/15/2023, Additional history exists Influenza Vaccine (#1) 2025 , 07/26/2023, 06/24/2017, [...] 06/24/2017 RSV Immunization Adult Patients Completed 07/26/2023 Depression Screening Completed 02/03/2025 HIB Vaccines Aged [...] this topic Medical Devices Implanted Type Area Prosthetics Assistant Device Identifier Shelf Expiration Date Model / Serial / Lot Tritanium Cluster Hole Shell 60mm Stry-Howm [id number] Implanted:Qty: 1 on 08/15/2021 by Thomas Pham MD Left: Hip [employer] [id number] 04/19/2026 702-04-60G / / [id number] Hip Acetab X3 36mm G Stry-Howm [id number] Implanted:Qty: 1 on 08/15/2021 by Thomas Pham MD Left: Hip [employer] [id number] 08/25/2024 643-00-36G / / [id number] Lp Hex Screw 6.5x30mm Stry-Howm [id number] Implanted:Qty: 1 on 08/15/2021 by Thomas Pham MD Left: Hip [employer] [id number] 02/21/2026 4022-1711 / / YEHJ Lp Hex Screw 6.5x20mm Stry-Howm [id number] 57 Implanted:Qty: 1 on 08/15/2021 by Thomas Pham MD Left: Hip [employer] [id number] 02/19/2026 7616-8972 / / YUG Hip Stem Acco Ii Sz8 127deg Stry-Howm [id number] 54 Implanted:Qty: 1 on 08/15/2021 by Thomas Pham MD Left: Hip [employer] [id number] 02/05/2026 3205-2107 / / [id number] Hip Head Delta Biolox 36mm-2.5 Stry-Howm [id number] 191 Implanted:Qty: 1 on 08/15/2021 by Thomas Pham MD Left: Hip [employer] [id number] 05/02/2026 6570-0-436 / / [id number] Procedures Procedure Name Priority Date/Time Associated Diagnosis Comments PSA TOTAL, FREE AND COMPLEXED, DIAGNOSTIC Routine 06/10/2025 3:19 PM EST Elevated prostate specific antigen (PSA) EXTERNAL MRI REPORT 05/18/2025 EXTERNAL MRI REPORT 05/18/2025 CBC WITH AUTO DIFFERENTIAL Routine 05/04/2025 3:22 [...] Relevant to Health Maintenance Results * (ABNORMAL) PSA total, free and complexed (06/10/2025 3:19 PM EST) PSA 8.02(H) 0.00 - 4.00 ng/mL 06/10/2025 6:39 PM [facility] PSA, Complexed 7.54(H) 0.00 - 3.00 ng/mL 06/10/2025 6:39 PM [facility] PSA, Free 0.5 ng/mL 06/10/2025 6:39 PM EST [facility] PSA, Free Pct 6.2(L) >25.0 % 06/10/2025 6:39 PM EST [facility] Comment:Free PSA is a calcul ated value. The diagnostic usefulness of % free PSA has not been established in patients with Total PSA below 2.6 or above 10 ng/mL. Blood Venous blood specimen / Unknown Venipuncture / Unknown 06/10/2025 3:19 PM EST 06/10/2025 3:19 PM EST [facility] - 06/10/2025 6:39 PM EST The [employer] IM Chemiluminescent Immunoassay is used. Results obtained with different assay methods or kits cannot be used interchangeably. Results cannot be interpreted as absolute evidence of the presence or absence of malignant disease. Vinay Cr MD LAB BLOOD ORDERABLES Final Re sult [facility] [address] [place] [address], [place] [phone] * External MRI Report (05/18/2025) Only the most recent of2 resultswithin the time period is included. Anatomical Region Laterality Modality Magnetic Resonan ce Provider [facility] MRI PROCEDURES Final Result * (ABNORMAL) CBC auto differential (05/04/2025 3:22 PM EDT) WBC 6.1 4.8 - 10.8 K/mcL LAB HEMETOLOGY METHOD 05/04/2025 4:49 PM EDT [facility] RBC 4.50 4.50 - 5.50 M/mcL LAB HEMETOLOGY METHOD 05/04/2025 4:49 PM EDT [facility] Hemoglobin 15.2 13.5 - 17.5 g/dL LAB HEMETOLOGY METHOD 05/04/2025 4:49 PM EDT [facility] Hematocrit 43.6 42.0 - 54.0 % LAB HEMETOLOGY METHOD 05/04/2025 4:49 PM EDT [facility] MCV 97.3 79.0 - 98.0 FL LAB HEMETOLOGY METHOD 05/04/2025 4:49 PM EDT [facility] MCH 33.9(H) 27.0 - 32.0 pcg LAB HEMETOLOGY METHOD 05/04/2025 4:49 PM EDT [facility] MCHC 34.9 32.0 - 37.0 g/dL LAB HEMETOLOGY METHOD 05/04/2025 4:49 PM EDT [facility] RDW 12.3 11.0 - 15.0 % LAB HEMETOLOGY METHOD 05/04/2025 4:49 PM EDT [facility] Platelets 265 130 - 400 K/mcL LAB HEMETOLOGY METHOD 05/04/2025 4:49 PM [facility] MPV 9.8 7.0 - 11.0 FL LAB HEMETOLOGY METHOD 05/04/2025 4:49 PM [facility] NRBC 0.0 <1.0 % LAB HEMETOLOGY [facility]04[facility]25 4[facility] NRBC Absolute 0.00 <0.10 K/mcL LAB HEMETOLOGY METHOD 05/04/2025 4:49 PM [facility] Neutrophils Relative 80.1 % LAB HEMETOLOGY METHOD 05/04/2025 4:49 PM [facility] Lymphocytes Relative 15.3 % LAB HEMETOLOGY METHOD 05/04/2025 4:49 PM [facility] Monocytes Relative 3.4 % LAB HEMETOLOGY METHOD 05/04/2025 4:49 PM [facility] Eosinophils Relative 0.2 % LAB HEMETOLOGY METHOD 05/04/2025 4:49 PM [facility] Basophils Relative 0.3 % LAB HEMETOLOGY METHOD 05/04/2025 4:49 PM [facility] Immature Granulocytes Relative 0.7 % LAB HEMETOLOGY METHOD 05/04/2025 4:49 PM [facility] Neutrophils Absolute 4.92 1.50 - 7.00 K/mcL LAB HEMETOLOGY METHOD 05/04/2025 4:49 PM [facility] Lymphocytes Absolute 0.94(L) 1.00 - 5.00 K/mcL LAB HEMETOLOGY METHOD 05/04/2025 4:49 PM [facility] Monocytes Absolute 0.21 0.20 - 1.00 K/mcL LAB HEMETOLOGY METHOD 05/04/2025 4:49 PM EDT [facility] Eosinophils Absolute 0.01 0.00 - 0.50 K/[facility] HEMETOLOGY METHOD 05/04/2025 4:49 PM EDT [facility] Basophils Absolute 0.02 0.00 - 0.20 K/[facility] LAB HEMETOLOGY METHOD 05/04/2025 4:49 PM EDT [facility] Immature Granulocytes Absolute 0.04(H) 0.00 - 0.03 K/[facility] HEMETOLOGY METHOD 05/04/2025 4:49 PM EDT [facility] Blood Venous blood specimen / Unknown Venipuncture / Unknown 05/04/2025 3:22 PM EDT 05/04/2025 4:38 PM EDT us Juan Carlos Cronin MD LAB BLOOD ORDERABLES Final Result Performing Organization Address City/[facility]/ZIP Co de Phone Number [facility] [address] [place] [address], [place] [phone] * Lactate dehydrogenase (05/04/2025 3:22 PM EDT) Pathologist [facility] LDH 128 120 - 246 unit/L LAB CHEMISTRY METHOD 05/04/2025 4:57 PM EDT [facility] Blood Venous blood specimen / Unknown Venipuncture / Unknown 05/04/2025 3:22 PM EDT 05/04/2025 4:37 PM EDT us Juan Carlos Cronin MD LAB BLOOD ORDERABLES Final Result Performing Organization Address [facility]/ZIP Co de Phone Number [facility] [address] [place] [address], [place] [phone] * Comprehensive metabolic panel (05/04/2025 3:22 PM EDT) Sodium 139 133 - 145 mmol/L LAB CHEMISTRY METHOD 05/04/2025 4:57 PM [facility] Potassium 4.2 3.5 - 5.5 mmol/L LAB CHEMISTRY METHOD 05/04/2025 4:57 PM [facility] Chloride 105 96 - 110 mmol/L LAB CHEMISTRY METHOD 05/04/2025 4:57 PM [facility] CO2 30 21 - 32 mmol/L LAB CHEMISTRY METHOD 05/04/2025 4:57 PM [facility] Anion Gap 4 3 - 11 LAB CHEMISTRY METHOD 05/04/2025 4:57 PM [facility] Glucose 95 70 - 100 mg/dL LAB CHEMISTRY METHOD 05/04/2025 4:57 PM [facility] BUN 24 5 - 25 mg/dL LAB CHEMISTRY METHOD 05/04/2025 4:57 PM [facility] Creatinine 1.01 0.70 - 1.30 mg/dL LAB CHEMISTRY METHOD 05/04/2025 4:57 PM [facility] eGFR 78 >=60 mL/min/1. 73m2 LAB CHEMISTRY METHOD 05/04/2025 4:57 PM [facility] Comment:Calculation based on the Chronic Kidney Disease Epidemiology Collaboration (CKD-EPI) equation refit without adjustment for race. BUN/Creatinine Ratio 23.8 LAB CHEMISTRY METHOD 05/04/2025 4:57 PM [facility] Calcium 9.2 8.5 - 10.5 mg/dL LAB CHEMISTRY METHOD 05/04/2025 4:57 PM [facility] AST (SGOT) 15 10 - 42 unit/L LAB CHEMISTRY METHOD 05/04/2025 4:57 PM [facility] ALT (SGPT) 32 10 - 60 unit/L LAB CHEMISTRY METHOD 05/04/2025 4:57 PM [facility] Alkaline Phosphatase 61 42 - 121 unit/L LAB CHEMISTRY METHOD 05/04/2025 4:57 PM EDT [facility] Total Protein 7.1 6.0 - 8.0 g/dL LAB CHEMISTRY METHOD 05/04/2025 4:57 PM EDT [facility] Albumin 4.0 3.2 - 5.0 g/dL LAB CHEMISTRY METHOD 05/04/2025 4:57 PM EDT [facility] Total Bilirubin 0.6 0.0 - 1.4 mg/dL LAB CHEMISTRY METHOD 05/04/2025 4:57 PM EDT [facility] Blood Venous blood specimen / Unknown Venipuncture / Unknown 05/04/2025 3:22 PM EDT 05/04/2025 4:37 PM EDT us Juan Carlos Cronin MD LAB BLOOD ORDERABLES Final Result [facility] [address] [place] [address], [place] [phone] * CT Chest/Abdomen/Pelvis w Contrast (05/02/2025 8:53 [...] Signed Date: 05/05/2025 00:20 ET Workstation ID: [id number] Transcribed By: Self Edit Transcribed Date: 05/04/2025 [...] Signed Date: 05/05/2025 00:20 ET Workstation ID: [id number] Transcribed By: Self Edit Transcribed Date: 05/04/2025 15:46 ET us Juan Carlos Cronin MD IM CT PROCEDURES Final Res ult * Lipid panel with reflex to direct LDL (02/03/2025 12:21 PM EDT) Cholesterol 158 0 - 200 mg/dL LAB CHEMISTRY METHOD 02/03/2025 4:02 PM EDT [facility] Triglycerides 68 0 - 150 mg/dL LAB CHEMISTRY METHOD 02/03/2025 4:02 PM EDT [facility] HDL 56 >=40 mg/dL LAB CHEMISTRY METHOD 02/03/2025 4:02 PM EDT [facility] LDL Calculated 88 0 - 100 mg/dL LAB CHEMISTRY METHOD 02/03/2025 4:02 PM EDT [facility] VLDL Cholesterol Krunal 13.6 mg/dL LAB CHEMISTRY METHOD 02/03/2025 4:02 PM EDT [facility] Non HDL Chol. (LDL+VLDL) 102 <145 mg/dL LAB CHEMISTRY METHOD 02/03/2025 4:02 PM EDT [facility] Chol/HDL Ratio 2.8 0.0 - 4.4 LAB CHEMISTRY METHOD 02/03/2025 4:02 PM EDT [facility] Blood Venous blood specimen / Unknown Venipuncture / Unknown 02/03/2025 12:21 PM EDT 02/03/2025 12:21 PM EDT Radha Nichols MD LAB BLOOD ORDERABLES Final Res ult [facility] [address] [place] [address], * Stool Based Tests (FOBT/FIT) (04/13/2024) [facility] Colorectal Cancer Screening: Stool Based Tests abstracted, no interpretation [facility] Provider HEALTH MAINTENANCE Final Result * Abdominal Aortic Aneurysm Screen (11/23/2020) [facility] Abdominal Aortic Aneurysm (AAA) Screening abstracted, no interpretation Anatomical Region Laterality Modality Other Historical Provider HEALTH MAINTENANCE Final Result * Hepatitis C Screening (02/23/2013) [facility] Hepatitis C Screening abstracted [facility] Provider HEALTH MAINTENANCE Final Result from Last 3 Months or Most Recently Relevant to Health Maintenance Insurance [facility] MEDICARE Care Teams Chief Writer Relationship Specialty Start Date End Date Radha Nichols MD [address] [place] [phone] PCP - General Internal Medicine 06/11/24
--- OUTSIDE RECORDS SUMMARY | 2025-07-05 13:22 | XMS_ITS | Clinical Summary ---
Author Organization [facility] Prior to 12/18/[address] [place] [address] Care Team Providers Care Dock Guard Name Role Phone Erica Neumann Primary Care [...] this topic Medical Devices Implanted Type Area Fire Control Technician B Device Identifier Shelf Expiration Date Model / Serial / Lot Tritanium Cluster Hole Shell 60mm Stry-Howm [id number] - [id number] Implanted:Qty: 1 on 08/15/2021 by Roberto Pham MD [place] [facility] Left: Hip [employer] [id number] 04/19/2026 702-04-60G / / [id number] Hip Acetab X3 36mm G Stry-Howm [id number] - [id number] Implanted:Qty: 1 on 08/15/2021 by Roberto Pham MD [place] [facility] Left: Hip [employer] [id number] 08/25/2024 643-00-36G / / [id number] Lp Hex Screw 6.5x30mm Stry-Howm [id number] 78 - [id number] Implanted:Qty: 1 on 08/15/2021 by Roberto Pham MD [place] [facility] Left: Hip [employer] [id number] 02/21/2026 2212-3471 / / YEHJ Lp Hex Screw 6.5x20mm Stry-Howm [id number] 57 - [id number] Implanted:Qty: 1 on 08/15/2021 by Roberto Pham MD [facility] Left: Hip [employer] [id number] 02/19/2026 2379-6881 / / YUG Hip Stem Acco Ii Sz8 127deg Stry-Howm 7921-4046-6250 54 - [id number] Implanted:Qty: 1 on 08/15/2021 by Roberto Pham MD [place] [facility] Left: Hip [employer] [id number] 02/05/2026 1603-3119 / / [id number] Hip Head Delta [employer] 36mm-2.5 Kvng [id number] 191 - [id number] Implanted:Qty: 1 on 08/15/2021 by Roberto Pham MD [place] [facility] Left: Hip [employer] [id number] 05/02/2026 6570-0-436 / / [id number] Advance Directives For more information, please contact: [phone] Latest Code Status on File Code Status [...] way: discussion with patient . Care Teams Dock Guard Relationship Specialty Start Date End Date Erica Neumann [address] [place], [place] [id number] [address] PCP - General Internal Medicine 07/11/20
== END 2025-07-05 12:13 | disposition home or self-care (01) ==
LOC: HO.HUSH 10:34
PROVIDERS: PCP Internal Medicine; Visit Provider Urology
DX: N52.9 Male erectile dysfunction, unspecified (principal); R97.20 Elevated prostate specific antigen [PSA]
CPT/HCPCS: 99213; G2211

== ENCOUNTER → 2025-07-05 10:33 | Outpatient (BNVA) | payer MEDICARE, BC, SELFPAY | PROVIDERS: PCP Internal Medicine; Visit Provider Urology | DX: N52.9 Male erectile dysfunction, unspecified (principal); R97.20 Elevated prostate specific antigen [PSA] | CPT/HCPCS: 51798; 99212 ==